=== PATIENT | female | born 1965 | race Caucasian/White ===

== ENCOUNTER 2016-11-30 09:42 | Outpatient (CLI) | payer OTHER ==
--- NOTE | 2016-11-30 11:45 | DIAGNOSTIC IMAGING REPORT ---
PROCEDURE: MG BILATERAL SCREENING W/CAD INDICATION: Screening. Baseline. TECHNIQUE: Bilateral CC and MLO digital views. COMPARISON: None. FINDINGS: Computer-aided detection applied. Moderately dense. No evidence of mass or suspicious calcification. IMPRESSION: 1. Negative mammogram RESULT CODE: 1- Negative. A. A negative report should not delay biopsy if a dominant or clinically suspicious mass is present. 10-15% of cancers are not identified by x-ray. B. A negative report may reinforce clinical impression. C. Adenosis and dense breasts may obscure an underlying neoplasm. D. False positive reports average 6-10%. E.. A yearly screening mammogram is recommended. A reminder letter will be scheduled.
== END 2016-11-30 23:00 ==
LOC: MAM SRH 09:42
DX: Z12.31 Encounter for screening mammogram for malignant neoplasm of breast (principal)

== ENCOUNTER 2016-12-28 09:04 | Outpatient (CLI) | payer OTHER ==
--- NOTE | 2016-12-28 10:46 | DIAGNOSTIC IMAGING REPORT ---
PROCEDURE: US SOFT TISSUE THYR/NECK/HEAD INDICATION: GRAVES DISEASE TECHNIQUE: Amaro scale and color Doppler sonographic images of the thyroid gland were obtained. COMPARISON: None. FINDINGS: RIGHT LOBE: Heterogeneous right thyroid lobe measures 5 x 1.5 x 2.2 cm with hyperemia. There is 6 mm upper pole hypoechoic nodule. LEFT LOBE: Heterogeneous left thyroid lobe measures of 4.6 x 1.5 x 2.4 cm with hyperemia. ISTHMUS: Measures 2.2 mm. IMPRESSION: 1. Inhomogeneous hyperemic thyroid gland suggestive of thyroiditis or Graves disease.
== END 2016-12-28 23:00 ==
LOC: US SRH 09:04
DX: E05.00 Thyrotoxicosis with diffuse goiter without thyrotoxic crisis or storm (principal)